=== PATIENT | male | born 1980 | race Caucasian/White ===

== ENCOUNTER 2022-07-19 10:54 | Emergency (ER) | payer MEDICAID ==
[~2022-07-19] VITALS: Ht 167.6 cm; Wt 82.0 kg
[2022-07-19 10:57] VITALS: BP 144/98
== END 2022-07-19 12:56 | disposition left against medical advice (07) ==
LOC: ER 10:54
DX: Z53.21 Procedure and treatment not carried out due to patient leaving prior to being seen by health care provider (principal)